=== PATIENT | male | born 1985 | race Caucasian/White ===

== ENCOUNTER 2020-05-13 08:15 | Day surgery (SDC) | payer OTHER, SELFPAY ==
[~2020-05-13] VITALS: Ht 172.7 cm; Wt 131.5 kg
[2020-05-13] MEDS ORDERED: LIDOCAINE 2% 100 MG/5 ML UJET TP ONE (10:49)
[2020-05-13] MEDS ORDERED: MIDAZOLAM 5 MG/5 ML VIAL ONE (10:49)
[2020-05-13] MEDS ORDERED: diphenhydrAMINE 50 MG/ML VIAL ONE (10:49)
[2020-05-13] MEDS ORDERED: fentaNYL citrate 0.05 MG/ML VIAL ONE (10:49)
[2020-05-13] MEDS ORDERED: diphenhydrAMINE 50 MG/ML VIAL IVP ONE (13:25)
[2020-05-13] MEDS ORDERED: fentaNYL citrate 0.05 MG/ML VIAL IVP ONE (13:25)
[2020-05-13] MEDS ORDERED: MIDAZOLAM 2 MG/2 ML VIAL IVP ONE (13:25)
== END 2020-05-13 11:50 | disposition home or self-care (01) ==
LOC: MDS 08:15 → MFCC 09:26 → MDS 11:50
PROVIDERS: ATTEND Internal Medicine Gastroenterology
DX: K62.5 Hemorrhage of anus and rectum (principal); Z20.828 Contact with and (suspected) exposure to other viral communicable diseases
CPT/HCPCS: 45378; J1200; J2250; J3010; U0003